=== PATIENT | male | born 1945 | race Caucasian/White ===

== ENCOUNTER → 2017-02-24 | Outpatient (CLI) | payer MEDICARE, OTHER ==
[~2017-02-24] VITALS: Ht 177.8 cm; Wt 98.2 kg
[~2017-02-24] MED LIST: CARV12.53 PO; CHOL5000 PO; CIPR-225 PO; CYAN100088 PO; DOCU100T7 PO; FERR-84 PO; GLYB5TAB6 PO; HYDR-3874 PO; INSU100I32 SQ; NITR-65 PO; PHEN-640 PO; SITA50TA PO; iron PO
[2017-02-24 13:42] VITALS: BP 128/63
== END ==
LOC: PREOP 13:21
PROVIDERS: ATTEND Urology
DX: Z01.818 Encounter for other preprocedural examination (principal); Z11.2 Encounter for screening for other bacterial diseases; N13.5 Crossing vessel and stricture of ureter without hydronephrosis
CPT/HCPCS: 87081

== ENCOUNTER 2017-03-03 06:08 | Day surgery (SDC) | payer MEDICARE, OTHER ==
[~2017-03-03] VITALS: Ht 177.8 cm; Wt 98.2 kg
[~2017-03-03 06:08] MED LIST changes: -CIPR-225 PO
[2017-03-03] MEDS ORDERED: cefTRIAXone 1 GM (ROCEPHIN) VIAL ONE (06:15)
[2017-03-03] MEDS ORDERED: NS (IVPB) 50 ML ONE (06:16)
[2017-03-03] MEDS ORDERED: LACTATED RINGERS 1,000 ML IV PRN (06:33)
[2017-03-03] MEDS ORDERED: fentaNYL INJECTION 100 MCG/2 ML AMP ONE (06:50)
[2017-03-03] MEDS ORDERED: ROCURONIUM 50 MG/5 ML (ZEMURON) VIAL IV ONE (06:51)
[2017-03-03] MEDS ORDERED: LIDOCAINE PF 2% 5 ML (XYLOCAINE) VIAL ONE (06:51)
[2017-03-03] MEDS ORDERED: proPOfol 200 MG/20 ML (DIPRIVAN) VIAL IV ONE (06:51)
[2017-03-03] MEDS ORDERED: LIDOCAINE JELLY 2% (XYLOCAINE) 5 ML TUBE ONE (06:51)
[2017-03-03] MEDS ORDERED: ONDANSETRON 4 MG/2 ML (SDV) Z0FRAN ONE (06:51)
[2017-03-03] MEDS ORDERED: MIDAZOLAM 2 MG/2 ML (VERSED) VIAL ONE (06:52)
--- NOTE | 2017-03-03 07:01 | Progress Note-Pre Operative ---
Pre-Operative Progress Note H&P Reviewed The H&P was reviewed, patient examined and no changes noted. Date Seen by Provider: Mar 03, 2017 Time Seen by Provider: 07:01 Date H&P Reviewed: Mar 03, 2017 Time H&P Reviewed: 07:01 Pre-Operative Diagnosis: BILATERAL URETERAL OBSTRUCTION KELLY UMANA MD Mar 03, 2017 7:01 am
[2017-03-03 07:22] VITALS: BP 110/69
[2017-03-03] MEDS ORDERED: cefTRIAXone 1 GM/NS 50 ML IVPB IV ONE ×2 (07:30)
[2017-03-03] MEDS ORDERED: SEVOFLURANE (ULTANE) 15 ML INHAL SOLN ONE ×2 (08:03→08:13)
--- NOTE | 2017-03-03 08:20 | Progress Note-Post Operative ---
Post-Operative Progess Note Surgeon (s)/Lead Electrician (s) Surgeon KELLY UMANA MD Lead Electrician: N/A Pre-Operative Diagnosis BILATERAL URETERAL OBSTRUCTION Post-Operative Diagnosis SAME Procedure & Operative Findings Date of Procedure 03/03/17 Procedure Performed/Findings CYSTO, REMOVAL OF BILATERAL STENTS, AND BILATERAL RETROGRADE UROGRAMS Anesthesia Type GENERAL Estimated Blood Loss Estimated blood loss (mL): N/A Specimens/Packing Specimens Removed 2 STENTS NOT SENT TO PATH Packing: N/A KELLY UMANA MD Mar 03, 2017 8:20 am
--- NOTE | 2017-03-03 08:22 | Discharge Inst-Urology ---
Discharge Inst-Urology Discharge Medications New, Converted, or Re-newed RX: RX on Chart Patient Instructions/Follow Up Plan Patient to make appointment at [facility] Sunday 04/08 Increase oral fluids for 48 hours and then as needed. Diet and Activity as tolerated. If questions or concerns contact your physician Or seek help at emergency department. KELLY UMANA MD Mar 03, 2017 8:22 am
[2017-03-03] MEDS ORDERED: MEPERIDINE (DEMEROL) INJ 50 MG/ML IVP PRN (08:30)
[2017-03-03] MEDS ORDERED: morphine INJ 10 MG/ML 1ML (SYR OR VIAL) IVP PRN (08:30)
[2017-03-03] MEDS ORDERED: ONDANSETRON 4 MG/2 ML (SDV) Z0FRAN IVP PRN (08:30)
[2017-03-03 09:05] VITALS: BP 120/69
[2017-03-03] MEDS ORDERED: PHEN-640 PO (09:18)
[2017-03-03] MEDS ORDERED: CIPR-225 PO (09:18)
[2017-03-03 09:35] VITALS: BP 111/62
[2017-03-03 10:03] VITALS: BP 111/62
--- NOTE | 2017-03-03 13:56 | OPERATIVE REPORT ---
PROCEDURE PHYSICIAN: KELLY UMANA DATE OF PROCEDURE: 03/03/2017 PREOPERATIVE DIAGNOSIS: Bilateral ureteral obstruction. POSTOPERATIVE DIAGNOSIS: Bilateral ureteral obstruction. OPERATION PERFORMED: Cystoscopy and removal of bilateral double-J stent and bilateral retrograde urogram. SURGEON: Tl. ANESTHESIA: General. COMPLICATIONS: None. PROCEDURE: Under satisfactory general anesthesia, the patient in lithotomy position, the genitalia were prepped and draped in usual sterile fashion. A 23-Turkish cystoscope was introduced under vision. There was a submeatal stricture that responded to the scope. Anterior urethra was normal the bladder neck was opened. Again visualized the double-J stent end protruding from the ureteral orifices, very upward and laterally. Before doing so I had to irrigate the bladder for at least 5 minutes to get rid of all the cloudiness, mucous debris that were in the bladder I went ahead and removed the right double-J stent. Using grasping forceps, I inserted a 6-Turkish ureteral catheter, injected contrast and followed ureter, fluoroscopically up and down there was no dilatation of the ureter was some caliectasis but there was complete emptying of the ureter on that side. We repeated the procedure on the left side and again there was a segmentum dilatation of the ureter in the distal and mid ureter. No filling defect and good emptying of the ureter on that side. Again, there was some chronic pyelectasis but there was good peristaltic motion on the fluoroscopy there was good efflux cystoscopically. By the end of the procedure almost the whole ureter was empty. At this point I elected not to insert a stent because I had no evidence of any mechanical obstruction of either ureters also the patient was very miserable with the stent with recurrent UTI, incontinence, and significant suprapubic discomfort. We will repeat a noncontrast CT or so in a month or six weeks and manage according. If he comes back with obstruction we will reinsert the stent according to which side. This was previously explained to the patient before surgery and then to his daughter postoperatively. The bladder was evacuated and cystoscope was removed. The patient tolerated the procedure and anesthesia well and was sent to recovery room in stable condition. Job ID: [id number] Dictated Date: 03/03/2017 08:26:30 Pallet Repairer Date: 03/03/2017 13:44:10 / mac
== END 2017-03-03 10:03 | disposition home or self-care (01) ==
LOC: SDC 06:08
PROVIDERS: ATTEND Urology
DX: N13.0 Hydronephrosis with ureteropelvic junction obstruction (principal); I10 Essential (primary) hypertension; E11.9 Type 2 diabetes mellitus without complications; Z85.51 Personal history of malignant neoplasm of bladder; Z79.899 Other long term (current) drug therapy
CPT/HCPCS: 82962